=== PATIENT | female | born 1975 | race Caucasian/White ===

== ENCOUNTER → 2017-01-01 | Outpatient (CLI) | payer BC ==
[~2017-01-01] MED LIST: GABA-113 PO; GABA600T PO; HYDR-4330 PO; TNR25 PO
== END | disposition home or self-care (01) ==
LOC: C.PATHSPEC 15:08
PROVIDERS: ATTEND Obstetrics & Gynecology
DX: N93.9 Abnormal uterine and vaginal bleeding, unspecified (principal)

== ENCOUNTER → 2017-03-02 | Outpatient (CLI) | payer BC ==
--- NOTE | 2017-03-02 16:26 | MAMMOGRAPHY REPORT ---
BILATERAL DIGITAL SCREENING MAMMOGRAM TOMOSYNTHESIS WITH CAD: 03/02/2017 CLINICAL HISTORY: Routine screening. Patient has no complaints. TECHNIQUE: Breast tomosynthesis in addition to standard 2D mammography was performed. Current study was also evaluated with a Computer Aided Detection (CAD) system. COMPARISON: Comparison is made to exams dated: 02/28/2016 ultrasound biopsy, 02/28/2016 mammogram, 02/13 ultrasound, and 02/14/2016 mammogram - [facility]. BREAST COMPOSITION: The tissue of both breasts is almost entirely fatty. FINDINGS: The previously biopsied lymph node in the left axilla measuring 16 mm contains an internal metallic biopsy marker and is not significantly changed in size compared to the 02/14/2016 mammograms . A 5 mm circumscribed mass in the anterior retroareolar left breast is also unchanged. This was pr eviously documented to represent a cyst on ultrasound. No new suspicious mass, architectural distort ion or cluster of microcalcifications is seen. IMPRESSION: ACR BI-RADS CATEGORY 1: NEGATIVE There is no mammographic evidence of malignancy. A 1 year screening mammogram is recommended. The pa tient will receive written notification of the results. Approximately 10% of breast cancers are not detected with mammography. A negative mammographic report should not delay biopsy if a clinically suggestive mass is present. Emelia Pruett M.D. ay/:03/02/2017 15:20:40 Manager Respiratory Care: Nancy Foster, [facility] letter sent: Normal 1/2 BI-RADS Code: ACR BI-RADS Category 1: Negative
== END | disposition home or self-care (01) ==
LOC: C.MAMM 15:02
PROVIDERS: ATTEND Internal Medicine
DX: Z12.31 Encounter for screening mammogram for malignant neoplasm of breast (principal)

== ENCOUNTER 2017-11-23 05:45 | Observation (INO) | payer BC ==
[2017-11-02 10:07] VITALS: BMI 33.0
--- NOTE | 2017-11-02 10:35 | PAT Medication Instructions ---
Service Date Nov 02, 2017. Current Home Medication List Acetaminophen (Tylenol), Unknown Dose PO UD PRN for PRN Metoprolol Tartrate (Lopressor) (Lopressor), 0.5 TAB PO BID Medication Instructions For Your Scheduled Surgery - Take the following medications the morning of surgery with a sip of water: Acetaminophen (Tylenol), Unknown Dose PO UD PRN for PRN (if needed, can be taken up to four hours before surgery) Metoprolol Tartrate (Lopressor) (Lopressor), 0.5 TAB PO BID - Take the following medications as scheduled the night before surgery: Acetaminophen (Tylenol), Unknown Dose PO UD PRN for PRN (if needed) Metoprolol Tartrate (Lopressor) (Lopressor), 0.5 TAB PO BID If you have any questions please call us at [phone] or [phone] or [phone]
[~2017-11-23] VITALS: Ht 175.3 cm; Wt 101.6 kg
[2017-11-23] VITALS (9 sets, daily range): BP systolic 106–177; BP diastolic 68–94; PULSE 69–84; TEMP 36.3–36.9; O2SAT 95–99; Ht 175.3 cm; Wt 101.6 kg
[~2017-11-23 05:45] MED LIST changes: +ACET-1256 PO; -GABA-113 PO; -GABA600T PO; -HYDR-4330 PO; +METO25TA56 PO; -TNR25 PO
[2017-11-23] MEDS ORDERED: CLINDAMYCIN 600 MG/54 ML D5W 50 ML IV SCH (06:00)
[2017-11-23] MEDS ORDERED: LACTATED RINGER'S 1000ML 1,000 ML IV SCH ×3 (06:00→12:45)
[2017-11-23] MEDS ORDERED: GENTAMICIN INJ 150 MG in DEXTROSE 5% 100ML 100 ML IV SCH (06:00)
[2017-11-23] MEDS ORDERED: MIDAZOLAM HCL 1 MG/ML 2ML VIAL ONE (06:58)
[2017-11-23] MEDS ORDERED: LARYING-O-JET KIT (LTA) ONE (06:58)
[2017-11-23] MEDS ORDERED: FENTANYL CITRATE INJ 50 MCG/1 ML 2 ML VIAL ONE ×4 (06:58→10:46)
[2017-11-23] MEDS ORDERED: DEXAMETHASONE SOD INJ 4 MG/ML VIAL ONE (06:58)
[2017-11-23] MEDS ORDERED: ONDANSETRON INJ 2 MG/ML 2 ML VIAL ONE ×2 (06:58→08:54)
[2017-11-23] MEDS ORDERED: LIDOCAINE HCL 2% 2 ML VIAL (20MG/ML) ONE (06:58)
[2017-11-23] MEDS ORDERED: PROPOFOL IV EMULSION 10 MG/ML 20 ML VIAL IV ONE (06:58)
[2017-11-23] MEDS ORDERED: METHYLENE BLUE 0.5% 10 ML VIAL ONE (06:59)
[2017-11-23] MEDS ORDERED: HYDROmorphone INJ 2 MG/ML SYR/VIAL ONE (06:59)
[2017-11-23] MEDS ORDERED: BUPIVACAINE 0.5 % 5 MG/1 ML MPF 30ML VIAL ONE (06:59)
[2017-11-23] MEDS ORDERED: ACETAMINOPHEN 1000 MG/100 ML IV IV ONE (07:04)
--- NOTE | 2017-11-23 07:11 | History & Physical Bridge Note ---
H&P Re-Evaluation Bridge Note: I have examined the patient, reviewed the History & Physical and in the interval since the performance of the History & Physical I have noted the following changes of clinical significance: No changes noted. Patient does want to use norco for her postop pain.
[2017-11-23] MEDS ORDERED: HYDR-4452 PO (07:13)
[2017-11-23] MEDS ORDERED: LABETALOL HCL IV 5 MG/ML 20ML IV PRN (08:00)
[2017-11-23] MEDS ORDERED: HYDROmorphone INJ 1 MG/ML SYR IV PRN (08:00)
[2017-11-23] MEDS ORDERED: ATROPINE SULFATE 0.1 MG/ML 5ML SYR IV PRN (08:00)
[2017-11-23] MEDS ORDERED: ONDANSETRON INJ 2 MG/ML 2 ML VIAL IV PRN ×2 (08:00→10:30)
[2017-11-23] MEDS ORDERED: FENTANYL CITRATE INJ 50 MCG/1 ML 2 ML VIAL IV PRN (08:00)
[2017-11-23] MEDS ORDERED: EpHEDrine SULFATE INJ 50 MG/ML AMP IV PRN (08:00)
[2017-11-23] MEDS ORDERED: MEPERIDINE HCL 25 MG/ML CARP IV PRN (08:00)
[2017-11-23] MEDS ORDERED: NEOSTIGMINE METHYLSULFATE 5 MG/5 ML SYR ONE (08:55)
[2017-11-23] MEDS ORDERED: GLYCOPYRROLATE INJ 0.2 MG/ML VIAL ONE (08:55)
--- NOTE | 2017-11-23 10:25 | [facility] Post Operative Brief Note ---
Immediate Operative Summary Operative Date Nov 23, 2017. Pre-Operative Diagnosis 1. Abnormal uterine bleeding 2. Menorrhagia 3. Leiomyoma Post-Operative Diagnosis 1. Abnormal uterine bleeding 2. Menorrhagia 3. Leiomyoma Procedure(s) Performed Total Laparoscopic Hysterectomy with Bilateral Salpingectomies, Cystoscopy Marci Robotic assistance Surgeon Dr. Lucina Segovia Payable Manager Surgeon(s) None Estimated Blood Loss 10 mL Findings See Below (uterus enlarged with multiple fibroids, 12wk size. nl ovaries bilat, nl fallopian tubes. cysto finding, nl bladder filling, nl ureteral jets) as noted Fluids (cc crystalloids) 1100 Specimens Permanent specimens A: Surgically resected uterus and cervix; bilateral fallopian tubes Drains olson Anesthesia Type General Complication(s) none Disposition Disposition: Recovery Room / PACU
[2017-11-23] MEDS ORDERED: SIMETHICONE 80 MG CHEW PO PRN (10:30)
[2017-11-23] MEDS ORDERED: ACETAMINOPHEN 325 MG TAB PO PRN (10:30)
--- NOTE | 2017-11-23 10:31 | Discharge Instructions ---
Discharge Instructions Date of Service Nov 23, 2017. Admission Reason for Admission: Abnormal Uterine Bleeding, Leiomyoma, Cervical Navi Discharge Discharge Diagnosis / Problem: after surgery Discharge Goals Goal(s): Routine recovery after surgery Activity Recommendations Activity Limitations: as noted below . Instructions / Follow-Up Instructions / Follow-Up POST OPERATIVE: BOWEL FUNCTION/MEDICATIONS: 1. Constipation pain and discomfort are the most common complaints 5-7 days after surgery. Points 2-6 address the things that can help. 2. Chewing gum can help stimulate the gut and help improve digestion and motility. 3. Milk of Magnesia 1-2 times per day until return of bowel function. 4. Colace is a stool softener that helps. Taking this 2-3 times per day until bowel function returns to normal is highly recommended. 5. Dulcolax is a laxative that may be used if several days have passed without a bowel movement. Alternatively Miralax may be used daily instead. 6. Drink plenty of fluids as this will also reduce constipation. 7. Narcotic pain medications will be prescribed by your physician. They are safe to use and we encourage you to use them. If you are not allergic, ibuprofen will also be prescribed. Many patients will be able to transition off of the narcotic medications to ibuprofen by postoperative day 3. ACTIVITY RECOMMENDATIONS: 1. Get plenty of rest and listen to your body. If you are tired, take a nap. 2. You may shower, but do not take a tub bath until you see your doctor at the 2 week post operative visit. 3. Absolutely NO intercourse and nothing in the vagina until you are examined by your doctor at the 8 week visit. At that visit it will be determined when such activities can be resumed. This can range from 6-12 weeks after your surgery depending on healing time. 4. The main physical activity in the first week should be walking. By the second week you can slowly increase activity. There are no limits on walking up and down stairs. 5. Do not lift more than 5-10 lbs for 4 weeks. Remember the "one-handed rule", i.e. if you can lift something with only one hand it's likely okay. 6. Minimize associate automation engineer like vacuuming and exercising for 4 weeks. "Overdoing it" can lead to incisions not healing, pain and vaginal bleeding , so again, listen to your body. 7. Driving can be resumed when you feel able. Do not drive within 24 hours of taking a narcotic medication. EXPECTATIONS: 1. Vaginal spotting, bleeding and discharge are common after surgery. There may even be an odor to the discharge which is often related to sutures used in the vagina. If you experience heavy vaginal bleeding, call the office number day or night [phone]. 2. Bladder discomfort is common after surgery from the catheter. This usually resolves in 1-2 weeks. 3. By the end of the 3rd or 4th week you should be feeling much better. It may take up to 6 weeks for your energy levels to return to normal. 4. Narcotic medications have side effects such as: dizziness, headache, nausea and/or vomiting. If you suspect your pain medication is causing problems, call our office and we may be able to prescribe an alternate medication. 5. The skin incisions are often covered with a liquid bandage. This will gradually peel off over time. CALL THE OFFICE IF YOU HAVE ANY OF THE FOLLOWIN. Temperature of 101 degrees or higher. 2. Severe abdominal or pelvic pain not relieved by pain medication. 3. Persistent nausea or vomiting. 4. Increased pain with urination or difficulty urinating. 5. Bright red bleeding that soaks more than 1 pad per hour. CONTACT PHONE NUMBERS: Main Office: [phone] Surgical Nurse: [phone] extension [phone] FOLLOW-UP: Post-Operative Appointments: * Individual instructions will have been given about the timing of your first examination, but this is usually at the end of the second week home. * You will need to call the office at soon after discharge to make the appointment for your post-op check-up if it has not already been scheduled. * Additional information regarding activity, sexual intercourse and when to return to work will be given at this appointment. WE WISH YOU A SPEEDY RECOVERY! Current Hospital Diet Patient's current hospital diet: Discharge Diet Recommended Diet: Regular Diet Procedures Procedures Performed: Total Laparoscopic Hysterectomy with Bilateral Salpingectomies, Cystoscopy DaVinci Robotic assistance Pending Studies Studies pending at discharge: yes List of pending studies: pathology Medical Emergencies . Who to Call and When: Medical Emergencies: If at any time you feel your situation is an emergency, please call 911 immediately. . Non-Emergent Contact Non-Emergency issues call your: Ball Holder . . "Provider Documentation" section prepared by Lucina Segovia. . [place] Drug Monitoring Program Search Results: patient reviewed within database, no issues identified
[2017-11-23] MEDS ORDERED: ROCURONIUM BROMIDE 10 MG/ML 5 ML VIAL IV ONE (10:39)
--- NOTE | 2017-11-23 11:57 | OPERATIVE REPORT ---
DATE OF OPERATION: 11/23/2017 PREOPERATIVE DIAGNOSES: 1. Abnormal uterine bleeding. 2. Menorrhagia. 3. Leiomyoma. POSTOPERATIVE DIAGNOSES: Same. PROCEDURES: 1. Total laparoscopic hysterectomy. 2. Bilateral salpingectomies. 3. Cystoscopy. 4. Robotic assistance. SURGEON: Dr. Lucina Segovia. ENTERPRISE INTEGRATION DEVELOPER: None. IV FLUIDS: 1100 mL. ESTIMATED BLOOD LOSS: 10 mL. URINE OUTPUT: 250 mL. ANESTHESIA: General. FINDINGS: Markedly enlarged uterus with multiple fibroids, at least a 12-week size, filling the pelvis. Bilateral normal ovaries and fallopian tubes. Cystoscopy findings with normal bladder filling and normal ureteral jets. INDICATIONS: A 42-year-old 1, para 1 with a history of abnormal uterine bleeding, menorrhagia and enlarged fibroid uterus, who desired definitive surgical management. DESCRIPTION OF PROCEDURE: The patient was taken to the operating room and identified. After adequate general anesthesia was obtained, she was placed in dorsal lithotomy position and prepped and draped in the usual sterile fashion. A Santos catheter was placed under sterile conditions. Attention was turned to the patient's vagina, where a weighted speculum and anterior retractor were placed to visualize the cervix, which was grasped in its anterior lip with an Allis clamp. A single interrupted suture of 0 Vicryl was placed at the 3 o'clock position and tied down. The cervix was sequentially dilated using Laly dilators; however, it was somewhat inadequate. A small amount of tunneling was potentially noted and therefore, further dilation was stopped. Attention was then turned to the patient's abdomen, where a supraumbilical skin incision was made with a scalpel. The Veress needle was placed intraperitoneally with an opening pressure of 7 mmHg. A CO2 pneumoperitoneum was created. The 12-mm optical trocar was then placed under direct visualization into the peritoneal cavity. The patient was placed in steep Trendelenburg. The uterus was visualized and was seen as noted above. Using the camera as visualization, attention was returned to the vagina, where the cervix was further attempts to be dilated and the VCare uterine manipulator device was placed through the cervical os into the uterine cavity, although it only sounded to 6 cm. The balloon was inflated and the suture material was tied to the cup and the cup was stabilized. The uterine manipulation was poor. The centrifugal casting machine operator returned to the abdomen, where 3 da Archie trocar sites, 2 right at the midline and 1 left of midline were created by first creating skin incisions and then placing under direct visualization da Archie trocars. The additional left upper quadrant patient assist port was placed that was approximately 10 mm. The da Archie robot was then brought to the patient's bedside. The appropriate instrument arms were connected to the appropriate trocars. The camera was introduced. A ProGrasp was placed into an instrument arm #3 under direct visualization followed by monopolar jayant through an instrument arm #1 and a fenestrated bipolar through an instrument arm #2. The instruments were brought into the field under direct visualization. The centrifugal casting machine operator then went to the console. Using some manipulation from below as well as the ProGrasp, the right uterine, ovarian, fallopian tube and round ligament complex was identified. The ureter was seen coursing well below the planned operative sites on this side. The above stated complex was then coagulated and transected sequentially using the fenestrated bipolar followed by monopolar jayant. The bladder flap was begun from the left side towards the midline. The bladder was pushed well away from the planned operative site. There were some filmy and dense adhesions in this area. The uterine artery pedicle on this side was skeletonized and then coagulated, but not cut. Attention was then returned to the left uterine-ovarian, round ligament, and fallopian tube complex. The ureter was suspected to be coursing low in the pelvis on this side but visualization was more difficult due to the colon and pelvic fat. This manipulation on this side was worse. The ProGrasp instrument was used to help visualize the uterine ovarian ligament attachment. The ovary was fairly adhesed to the uterus and sequentially was coagulated and transected away from the uterine wall. The round ligament complex was elevated and coagulated and transected. The posterior leaf of the broad ligament was then opened up into and dissected back towards the remaining uterine ovarian ligament complex. This was all coagulated and transected and then bluntly . The anterior leaf of the broad ligament was opened up into and the bladder flap was begun from the left side to meet across the midline on the right. She has a prior section. This dissection was done cautiously and the planned area of the colpotomy site was completely cleared away using the monopolar jaaynt and fenestrated bipolar in succession. The uterine artery pedicle on this side was more difficult to skeletonize. Once it was skeletonized, it was coagulated in multiple steps and then transected using the monopolar jayant. The attention was returned to the right uterine artery pedicle, which was then recoagulated and transected. At this point, the uterus was attempted to be lifted anteriorly and the ProGrasp needed to be used to stabilize that in order to observe the posterior colpotomy site. With further pressure on the VCare cup, the balloon perforated at the posterior cervix, probably at the level of the internal os, the vcare cup was never at the fundus. The vcare cup was then thought to be approximately a couple of centimeters caudad to this perforation and a colpotomy was begun along this area between the uterosacral ligaments. Once the cup was identified, the cervix was carved away from the upper vagina circumferentially using the monopolar jayant. Once the specimen was completely freed, attention was turned to the vagina, where the specimen was removed. This took place using a bivalve and uterine coring resection technique. The uterus was completely removed as well as the cervix. A sponge was placed in the vagina to allow for maintenance of the pneumoperitoneum. Attention was returned to the console and the bilateral fallopian tubes were resected and brought out through the patient assist port using a grasper and sent as specimen. The #1 instrument arm was replaced with the large needle full service vending driver. The 2-0 V-Loc 90 suture was brought into the abdomen. The cuff was then closed in the usual fashion using the suture material and back stitches were placed. The suture material was then cut and the needle was removed. The sponge in the vagina had been removed and the pneumoperitoneum was maintained. IV methylene blue had been administered. There were no active bleeding sites. At this point, a cystoscopy took place with the findings as noted above. The trocars had all been disconnected from the robotic instrument arms and the robot was moved away from the patient's bedside. The CO2 gas was allowed to escape from the patient's abdomen. A new Santos catheter had already been placed. The patient was placed in a flat positioning. The larger trocar sites had their subcutaneous fat reapproximated using 0 Vicryl. All incision sites were then closed in a subcuticular fashion using 4-0 Vicryl. Approximately 12 mL of Marcaine were injected in the incision sites and they were then dressed with Dermabond. The patient was returned to the supine position. She was awoken from anesthesia and transferred to recovery room in stable condition. All sponge, lap and needle counts were correct x2. It is significant to mention that the vagina was inspected and there were no issues or lacerations noted. The patient was awoke from the anesthesia and transferred to recovery room in stable condition. I attest to the content of the Intraoperative Record and any orders documented therein. Any exceptions are noted below. EMILY
--- NOTE | 2017-11-23 12:16 | Anesthesiology Progress Note ---
Anesthesia Post Op Note Date & Time Nov 23, 2017 at 12:15 Vital Signs Pain Intensity: 4.0 Vital Signs Past 12 Hours Date Time Temp Pulse Resp B/P (MAP) Pulse Ox O2 Delivery O2 Flow Rate FiO2 11/23/17 12:04 36.6 69 14 106/69 (81) 97 Room Air 11/23/17 11:40 Room Air 11/23/17 11:40 Room Air 11/23/17 11:30 70 16 113/73 98 Nasal Cannula 3 11/23/17 11:15 71 16 116/68 98 Nasal Cannula 3 11/23/17 11:00 36.3 67 16 104/74 98 Nasal Cannula 3 11/23/17 10:50 67 16 106/64 96 Oxymask 5 11/23/17 10:40 78 16 122/69 100 Oxymask 10 11/23/17 10:34 36.2 96 12 113/72 100 Oxymask 10 11/23/17 06:31 36.9 83 18 177/94 (121) 99 Room Air Notes Mental Status: alert / awake / arousable, participated in evaluation Pt Amnestic to Procedure: Yes Nausea / Vomiting: adequately controlled Pain: adequately controlled Airway Patency, RR, SpO2: stable & adequate BP & HR: stable & adequate Hydration State: stable & adequate Anesthetic Complications: no major complications apparent
[2017-11-23] MEDS ORDERED: HYDR-5688 PO (12:20)
[2017-11-23] MEDS: HYDROCODONE/ACETAMIN 5/325MG TAB PO PRN ×2 (13:32→14:53)
[2017-11-23] MEDS ORDERED: IV FLUIDS COMPLETED PRN (16:30)
--- NOTE | 2017-11-26 20:30 | Discharge Summary ---
Discharge Summary Date of Service Nov 23, 2017. Date of discharge 11/23/17. Discharge Summary Admission diagnoses: abnormal uterine bleeding, menorrhagia, leiomyoma Discharge diagnoses: same Procedures: total laparoscopic hysterectomy, cystoscopy, bilateral salpingectomies, robotic assistance. Brief history and hospital course: Patient with known heavy menstrual bleeding with enlarged uterus with fibroids and desires definitive surgical management. She underwent above stated procedures without incident. On same day as surgery was tolerating regular diet, voiding, ambulating and tolerating her pain on oral medications. She was given instructions and prescriptions for pain medications and was sent home. Plan for followup in 2weeks.
== END 2017-11-23 18:10 | disposition home or self-care (01) ==
LOC: C.ACU 05:45 → C.OBG 10:28 → INTOOBSV 10:28 → ENRESERV 11:27
PROVIDERS: ADMIT Obstetrics & Gynecology; ATTEND Obstetrics & Gynecology
DX: N93.9 Abnormal uterine and vaginal bleeding, unspecified (principal); N92.0 Excessive and frequent menstruation with regular cycle; D25.9 Leiomyoma of uterus, unspecified; I10 Essential (primary) hypertension; M54.16 Radiculopathy, lumbar region; M47.816 Spondylosis without myelopathy or radiculopathy, lumbar region; E55.9 Vitamin D deficiency, unspecified; Z88.6 Allergy status to analgesic agent; Z88.0 Allergy status to penicillin; Z88.2 Allergy status to sulfonamides; Z81.8 Family history of other mental and behavioral disorders; Z83.3 Family history of diabetes mellitus; Z82.49 Family history of ischemic heart disease and other diseases of the circulatory system
CPT/HCPCS: 58573; S2900

== ENCOUNTER 2017-11-30 12:02 | Emergency (ER) | payer BC ==
[~2017-11-30] VITALS: Ht 172.7 cm; Wt 101.0 kg
[~2017-11-30 12:02] MED LIST changes: +HYDR-5688 PO
[2017-11-30 12:15] VITALS: TEMP 37.1; Ht 172.7 cm; Wt 101.0 kg
[2017-11-30] MEDS ORDERED: ACETAMINOPHEN 500 MG TAB PO STA (12:47)
[2017-11-30] MEDS ORDERED: SODIUM CHLORIDE 0.9% 1000ML 1,000 ML IV STA (12:47)
--- NOTE | 2017-11-30 12:56 | EMERGENCY ROOM VISIT NOTE ---
History Report prepared by Graham: Pascual Leo Under the Supervision of: Dr. Vance Faria M.D. First contact with patient: 12:44 Chief Complaint: FLANK PAIN Stated Complaint: RT SIDED PAIN ON INSPIRATION-TOTAL HYSTERECTOMY History of Present Illness The patient is a 42 year old female who presents to the Emergency Room with complaints of pain in her right flank that has been present since a laparoscopic total hysterectomy that was performed on the 12th, 7 days ago. The patient states that following the procedure she had pain in her right chest, right shoulder, and right side that she just attributed to surgical air. These pains have dissipated at this time. The right flank pain has persisted and is now worsened by deep inhalation. The patient described the pain as the cramping sensation associated with running. The pain will "double her over" intermittently. She denies any burning with urination, cough, congestion, or shortness of breath. Source of History: patient Onset: 7 days ago Position: back (right flank) Symptom Intensity: will "double her over" in pain Quality: cramping Modifying Factors (Worsening): other (Deep inhalaltion) Associated Symptoms: No cough, No SOB, No urinary symptoms Review of Systems See HPI for pertinent positives and negatives. A total of ten systems were reviewed and were otherwise negative. Past Medical & Surgical Medical Problems: (1) Abnormal uterine bleeding (AUB) (2) Leiomyoma (3) Menorrhagia Family History Cancer Diabetes mellitus Heart disease Hypertension Social History Smoking Status: Never Smoker Alcohol Use: none Drug Use: none Marital Status: Occupation Status: employed Current/Historical Medications Scheduled Metoprolol Tartrate (Lopressor) (Lopressor), 12.5 MG PO BID Allergies Coded Allergies: Sulfa Antibiotics (Verified Allergy, Severe, TONGUE SWELLING, CAN'T BREATHE, 11/30/17) Penicillins (Verified Allergy, Mild, RASH, 11/30/17) Aspirin (Verified Allergy, Unknown, UNKNOWN, 11/30/17) NSAIDs (Verified Allergy, Unknown, TOLD BY [employer] NOT TO TAKE NSAIDS, ) WAS TOLD BY [employer] IN PAST NOT TO TAKE NSAIDS Erythromycin (Verified Adverse Reaction, Mild, N/V, 11/30/17) Physical Exam Vital Signs Date Time Temp Pulse Resp B/P (MAP) Pulse Ox O2 Delivery O2 Flow Rate FiO2 11/30/17 15:31 97 20 127/89 98 Room Air 11/30/17 13:45 90 18 147/91 100 Room Air 11/30/17 13:20 109 11/30/17 13:20 99 Room Air 11/30/17 12:15 37.1 101 20 169/94 99 Room Air Physical Exam GENERAL: Awake, alert, well-appearing, in no distress HENT: Normocephalic, atraumatic. Mucous membranes are dry. EYES: Normal conjunctiva. Sclera non-icteric. NECK: Supple. No nuchal rigidity. FROM. No JVD. RESPIRATORY: Clear to auscultation. CARDIAC: Regular rate, normal rhythm. Extremities warm and well perfused. Pulses equal. ABDOMEN: Soft, non-distended. No tenderness to palpation. No rebound or guarding. No masses. RECTAL: Deferred. MUSCULOSKELETAL: Chest examination reveals no tenderness. The back is symmetrical on inspection without obvious abnormality. There is no CVA tenderness to palpation. No joint edema. There is mild right flank tenderness. No peritoneal signs. LOWER EXTREMITIES: Calves are equal size bilaterally and non-tender. No edema. No discoloration. NEURO: Normal sensorium. No sensory or motor deficits noted. SKIN: No rash or jaundice noted. Medical Decision & Procedures ER Provider Diagnostic Interpretation: Radiology results as stated below per my review and radiologist interpretation: ABDOMEN AND PELVIS CT WITH IV CONTRAST HISTORY: Acute right-sided flank pain with history of recent hysterectomy Right flank pain TECHNIQUE: Multiaxial CT images of the abdomen and pelvis were performed following the use of intravenous contrast. A dose lowering technique was utilized adhering to the principles of ALARA. COMPARISON STUDY: CTA chest of same day. FINDINGS: Linear subsegmental bibasilar consolidative opacities and groundglass densities of the lung bases suggest areas of atelectasis. Imaged inferior cardiac chambers are unremarkable. Indeterminate 5 mm low attenuating lesion of the lateral left hepatic lobe is too small to characterize however suggests benign etiology such as a hepatic cyst. Similar appearing 3 mm lesion is noted involving the hepatic dome. No intrahepatic biliary ductal dilation. Spleen is mildly enlarged, 13.1 cm. The pancreas, gallbladder and adrenal glands are within normal limits. Kidneys, ureters and urinary bladder are unremarkable. The aorta is normal in course and caliber. No bulky adenopathy. There is no bowel obstruction or focal bowel wall thickening identified. Mild colonic diverticulosis without CT evidence of acute diverticulitis. Normal appendix. There is moderate stranding about the central lower pelvis about the vaginal cuff with surgically absent uterus. Scattered foci of pneumoperitoneum and extraperitoneal air are seen throughout the abdomen and pelvis with additional foci of deep tissue air of the abdominal wall. Focal area of increased attenuation measuring 2.6 x 1.4 cm is noted adjacent to the left anterior upper pelvis suggesting small hematoma formation, image 371 of series 6. Hyperattenuating material within the dependent pelvis is also compatible with hemorrhage. There is a 1.8 x 1.4 cm cystic lesion of the left ovary suggesting dominant follicle. Right adnexum is unremarkable. No loculated drainable fluid collections or abscess. No retained foreign body. Mild stranding with subcutaneous and deep tissue air is noted about the periumbilical tissues and left lower pelvis, likely postsurgical. The bones appear intact. IMPRESSION: 1. Postoperative changes from recent hysterectomy. Mild layering hemorrhage is seen within the dependent pelvis with a small 2.6 cm hematoma of the left upper pelvis. Scattered areas of pneumoperitoneum, extraperitoneal air and deep tissue air about the abdominal wall are also likely expected postsurgical changes. No drainable fluid collections identified. 2. No bowel obstruction or focal bowel wall thickening. 3. Mild colonic diverticulosis without diverticulitis. 4. Normal appendix. Electronically signed by: Kameron Pineda M.D. 11/30/2017 2:46 PM Dictated Date/Time: 11/30/2017 2:32 PM (CHEST FOR PE) ANGIO WITH CT DOSE: 1545.99 mGy.cm HISTORY: Chest pain dyspnea TECHNIQUE: Multiaxial CT images of the chest were performed following the intravenous administration of contrast to evaluate the pulmonary arteries. Maximal intensity projection images were also obtained. A dose lowering technique was utilized adhering to the principles of ALARA. COMPARISON STUDY: None. FINDINGS: There is a normal caliber thoracic aorta with no evidence for dissection. There is no evidence for pulmonary embolus. No pleural effusions. No pneumothorax. The liver and spleen are unremarkable. No mediastinal or hilar lymphadenopathy. The central airways are patent. Lungs demonstrate bibasilar subsegmental atelectatic change. Mid and upper lungs are considered clear. Moderate degenerative disc change at the entire thoracic region. IMPRESSION: No evidence for pulmonary embolus. Bibasilar subsegmental atelectasis. Lungs otherwise appear clear. Moderate degenerative changes thoracic spine. The above report was generated using voice recognition software. It may contain grammatical, syntax or spelling errors. Electronically signed by: Josh Saba M.D. 11/30/2017 2:36 PM Dictated Date/Time: 11/30/2017 2:32 PM CHEST ONE VIEW PORTABLE CLINICAL HISTORY: CHEST PAIN dyspnea COMPARISON STUDY: 08/19/2012 FINDINGS: The bones soft tissues and hemidiaphragms are normal. The cardiomediastinal silhouette is normal. The lungs are clear. The pulmonary vasculature is normal. IMPRESSION: Negative chest. The above report was generated using voice recognition software. It may contain grammatical, syntax or spelling errors. Electronically signed by: Josh Saba M.D. 11/30/2017 1:24 PM Laboratory Results 11/30/17 12:35 Red Blood Count 4.80, Mean Corpuscular Volume 86.5, Mean Corpuscular Hemoglobin 30.0, Mean Corpuscular Hemoglobin Concent 34.7, Mean Platelet Volume 10.2, Neutrophils (%) (Auto) 69.5, Lymphocytes (%) (Auto) 21.6, Monocytes (%) (Auto) 6.1, Eosinophils (%) (Auto) 2.2, Basophils (%) (Auto) 0.3, Neutrophils # (Auto) 7.92, Lymphocytes # (Auto) 2.46, Monocytes # (Auto) 0.70, Eosinophils # (Auto) 0.25, Basophils # (Auto) 0.03 11/30/17 12:35 11/30/17 13:57 Test 11/30/17 12:35 11/30/17 13:15 11/30/17 13:57 White Blood Count 11.39 K/uL (4.8-10.8) Red Blood Count 4.80 M/uL (4.2-5.4) Hemoglobin 14.4 g/dL (12.0-16.0) Hematocrit 41.5 % (37-47) Mean Corpuscular Volume 86.5 fL (80-100) Mean Corpuscular Hemoglobin 30.0 pg (25-34) Mean Corpuscular Hemoglobin Concent 34.7 g/dl (32-36) Platelet Count 339 K/uL (130-400) Mean Platelet Volume 10.2 fL (7.4-10.4) Neutrophils (%) (Auto) 69.5 % Lymphocytes (%) (Auto) 21.6 % Monocytes (%) (Auto) 6.1 % Eosinophils (%) (Auto) 2.2 % Basophils (%) (Auto) 0.3 % Neutrophils # (Auto) 7.92 K/uL (1.4-6.5) Lymphocytes # (Auto) 2.46 K/uL (1.2-3.4) Monocytes # (Auto) 0.70 K/uL (0.11-0.59) Eosinophils # (Auto) 0.25 K/uL (0-0.5) Basophils # (Auto) 0.03 K/uL (0-0.2) RDW Standard Deviation 41.4 fL (36.4-46.3) RDW Coefficient of Variation 13.0 % (11.5-14.5) Immature Granulocyte % (Auto) 0.3 % Immature Granulocyte # (Auto) 0.03 K/uL (0.00-0.02) Anion Gap 7.0 mmol/L (3-11) Est Creatinine Clear Calc Drug Dose 112.4 ml/min Estimated GFR () 103.8 Estimated GFR (Non- 89.6 BUN/Creatinine Ratio 16.2 (10-20) Calcium Level 9.4 mg/dl (8.5-10.1) Total Bilirubin 0.5 mg/dl (0.2-1) Alanine Aminotransferase (ALT/SGPT) 23 U/L (12-78) Alkaline Phosphatase 96 U/L (45-117) Troponin I < 0.015 ng/ml (0-0.045) Total Protein 8.6 gm/dl (6.4-8.2) Albumin 3.9 gm/dl (3.4-5.0) Lipase 204 U/L (73-393) Bedside D-Dimer > 450 ng/mlFEU (0-450) Urine Color YELLOW Urine Appearance CLOUDY (CLEAR) Urine pH 5.0 (4.5-7.5) Urine Specific [place] 1.027 (1.000-1.030) Urine Protein NEG (NEG) Urine Glucose (UA) NEG (NEG) Urine Ketones TRACE (NEG) Urine Occult Blood 1+ (NEG) Urine Nitrite NEG (NEG) Urine Bilirubin NEG (NEG) Urine Urobilinogen NEG (NEG) Urine Leukocyte Esterase TRACE (NEG) Urine WBC (Auto) 1-5 /hpf (0-5) Urine RBC (Auto) 0-4 /hpf (0-4) Urine Hyaline Casts (Auto) 1-5 /lpf (0-5) Urine Epithelial Cells (Auto) >30 /lpf (0-5) Urine Bacteria (Auto) 1+ (NEG) Urine Crystals CALCIUM OXALATE (NONE Urine Yeast (Auto) (NONE PRSENT) Direct Bilirubin < 0.1 mg/dl (0-0.2) Aspartate Amino Transf (AST/SGOT) 8 U/L (15-37) Date/Time Source Procedure Growth Status 11/30/17 13:15 Urine , Clean Catch Urine Culture - Final THREE TYPES OF ORGANSIMS PRESENT, ALL... Complete Laboratory results reviewed by me Medications Administered Medications (Trade) Dose Ordered Sig/Reshma Route Start Time Stop Time Status Last Admin Dose Admin Sodium Chloride 1,000 ml @ 999 mls/hr Q1H1M STAT IV 11/30/17 12:47 11/30/17 13:47 DC 11/30/17 13:27 999 MLS/HR Acetaminophen (Tylenol Tab) 1,000 mg NOW STAT PO 11/30/17 12:47 11/30/17 12:54 DC 11/30/17 13:28 1,000 MG ECG Per My Interpretation Indication: chest pain Rate (beats per minute): 101 Rhythm: sinus tachycardia Findings: other (Normal [place], No YU/STD) ED Course 1246: The patient was evaluated in room A3. A complete history and physical exam was performed. 1247: Ordered Tylenol 1000 mg PO, Sodium Chloride 1000 mL @ 999 mL/hr IV. 1450: I reevaluated the patient. Discussed results and discharge instructions: she verbalized understanding and agreement. The patient is ready for discharge. Medical Decision I reviewed the patient's past medical history, medications, and the nursing notes as described above. Differential diagnosis: Etiologies such as renal colic, appendicitis, diverticulitis, mesenteric ischemia, aortic pathology, infections, inflammatory bowel disease, PUD, biliary pathology, UTI, as well as others were entertained. CC patient is a 42-year-old woman who presents emergency department with right groin pain after having a laparoscopic hysterectomy 7 days prior to arrival per hpi. On arrival the patient is no acute distress, afebrile stable vital signs. On exam, she has mild tenderness to the right lower chest wall area and complains of pleuritic symptoms where pain is worse with deep breath. Of note, the patient reports her type of pain that resolved slowly over time from her procedure which was believed to be related to effusion of gas from her procedure. EKG is unremarkable. D-dimer was elevated and so CT PE was performed as well as CT the abdomen and pelvis. CT negative for pulmonary embolism, pneumonia, or concerning acute process otherwise. WBC 11 is nonspecific and labs otherwise unremarkable. Patient feels improved with IV fluid hydration although still has some mild pain which she states is manageable. Findings and plan for follow-up reviewed with patient. Patient agreeable and d/c'd per discharge instructions. Impression Primary Impression: Right flank pain Scribe Attestation The scribe's documentation has been prepared under my direction and personally reviewed by me in its entirety. I confirm that the note above accurately reflects all work, treatment, procedures, and medical decision making performed by me. Departure Information Dispostion Home / Self-Care Referrals Mak Faustin M.D. (PCP) Patient Instructions ED Flank Pain Uncertain Cause, My [facility] Additional Instructions Please follow up with your primary care physician and your surgeon as scheduled for re-evaluation. The cause of your symptoms is unclear at this time but may be related to residual gas from her recent laparoscopic surgery. Otherwise, your exam, EKG, chest xray, lab results, and CT scan of your chest and abdomen/pelvis did not show signs of an emergent condition at this time. Acetaminophen for pain and fevers as needed. Drink plenty of fluids to ensure hydration. Return to the emergency department for worsening symptoms as described in the accompanying instructions.
[2017-11-30 13:05] LABS: BASO % 0.3 %; BASO ABS # 0.03 K/uL (0-0.2); EOS % 2.2 %; EOS ABS # 0.25 K/uL (0-0.5); HEMATOCRIT 41.5 % (37-47); HEMOGLOBIN 14.4 g/dL (12.0-16.0); IG# 0.03 K/uL (0.00-0.02); LYMPH % 21.6 %; LYMPH ABS # 2.46 K/uL (1.2-3.4); MEAN CELL VOLUME 86.5 fL (80-100); MEAN CORPUSCULAR HGB CONC 34.7 g/dl (32-36); MEAN PLATELET VOLUME 10.2 fL (7.4-10.4); MONO % 6.1 %; NEUT % 69.5 %; NEUT ABS # 7.92 K/uL (1.4-6.5); PLATELET COUNT 339 K/uL (130-400); RED CELL DISTRIBUTION WIDTH SD 41.4 fL (36.4-46.3); WHITE BLOOD COUNT 11.39 K/uL (4.8-10.8)
[2017-11-30 13:20] VITALS: O2SAT 99
--- NOTE | 2017-11-30 13:25 | DIAGNOSTIC IMAGING REPORT ---
CHEST ONE VIEW PORTABLE CLINICAL HISTORY: CHEST PAIN dyspnea COMPARISON STUDY: 08/19/2012 FINDINGS: The bones soft tissues and hemidiaphragms are normal. The cardiomediastinal silhouette is normal. The lungs are clear. The pulmonary vasculature is normal. IMPRESSION: Negative chest. The above report was generated using voice recognition software. It may contain grammatical, syntax or spelling errors. Electronically signed by: Josh Saba M.D. 11/30/2017 1:24 PM Dictated Date/Time: 11/30/2017 1:24 PM
[2017-11-30 13:35] LABS: ALBUMIN 3.9 gm/dl (3.4-5.0); ALKALINE PHOSPHATASE 96 U/L (45-117); ALT/SGPT 23 U/L (12-78); BLOOD UREA NITROGEN 13 mg/dl (7-18); CALCIUM 9.4 mg/dl (8.5-10.1); CARBON DIOXIDE 26 mmol/L (21-32); CREATININE 0.81 mg/dl (0.60-1.20); GLUCOSE 90 mg/dl (70-99); LIPASE 204 U/L (73-393); SODIUM 137 mmol/L (136-145); TOTAL PROTEIN 8.6 gm/dl (6.4-8.2)
[2017-11-30] MEDS ORDERED: OPTIRAY 320 IV PRN (14:00)
[2017-11-30 14:26] LABS: POTASSIUM 4.4 mmol/L (3.5-5.1)
[2017-11-30 14:31] LABS: AST/SGOT 8 U/L (15-37)
--- NOTE | 2017-11-30 14:38 | DIAGNOSTIC IMAGING REPORT ---
(CHEST FOR PE) ANGIO WITH CT DOSE: 1545.99 mGy.cm HISTORY: Chest pain dyspnea TECHNIQUE: Multiaxial CT images of the chest were performed following the intravenous administration of contrast to evaluate the pulmonary arteries. Maximal intensity projection images were also obtained. A dose lowering technique was utilized adhering to the principles of ALARA. COMPARISON STUDY: None. FINDINGS: There is a normal caliber thoracic aorta with no evidence for dissection. There is no evidence for pulmonary embolus. No pleural effusions. No pneumothorax. The liver and spleen are unremarkable. No mediastinal or hilar lymphadenopathy. The central airways are patent. Lungs demonstrate bibasilar subsegmental atelectatic change. Mid and upper lungs are considered clear. Moderate degenerative disc change at the entire thoracic region. IMPRESSION: No evidence for pulmonary embolus. Bibasilar subsegmental atelectasis. Lungs otherwise appear clear. Moderate degenerative changes thoracic spine. The above report was generated using voice recognition software. It may contain grammatical, syntax or spelling errors. Electronically signed by: Josh Saba M.D. 11/30/2017 2:36 PM Dictated Date/Time: 11/30/2017 2:32 PM
--- NOTE | 2017-11-30 14:47 | DIAGNOSTIC IMAGING REPORT ---
ABDOMEN AND PELVIS CT WITH IV CONTRAST HISTORY: Acute right-sided flank pain with history of recent hysterectomy Right flank pain TECHNIQUE: Multiaxial CT images of the abdomen and pelvis were performed following the use of intravenous contrast. A dose lowering technique was utilized adhering to the principles of ALARA. COMPARISON STUDY: CTA chest of same day. FINDINGS: Linear subsegmental bibasilar consolidative opacities and groundglass densities of the lung bases suggest areas of atelectasis. Imaged inferior cardiac chambers are unremarkable. Indeterminate 5 mm low attenuating lesion of the lateral left hepatic lobe is too small to characterize however suggests benign etiology such as a hepatic cyst. Similar appearing 3 mm lesion is noted involving the hepatic dome. No intrahepatic biliary ductal dilation. Spleen is mildly enlarged, 13.1 cm. The pancreas, gallbladder and adrenal glands are within normal limits. Kidneys, ureters and urinary bladder are unremarkable. The aorta is normal in course and caliber. No bulky adenopathy. There is no bowel obstruction or focal bowel wall thickening identified. Mild colonic diverticulosis without CT evidence of acute diverticulitis. Normal appendix. There is moderate stranding about the central lower pelvis about the vaginal cuff with surgically absent uterus. Scattered foci of pneumoperitoneum and extraperitoneal air are seen throughout the abdomen and pelvis with additional foci of deep tissue air of the abdominal wall. Focal area of increased attenuation measuring 2.6 x 1.4 cm is noted adjacent to the left anterior upper pelvis suggesting small hematoma formation, image 371 of series 6. Hyperattenuating material within the dependent pelvis is also compatible with hemorrhage. There is a 1.8 x 1.4 cm cystic lesion of the left ovary suggesting dominant follicle. Right adnexum is unremarkable. No loculated drainable fluid collections or abscess. No retained foreign body. Mild stranding with subcutaneous and deep tissue air is noted about the periumbilical tissues and left lower pelvis, likely postsurgical. The bones appear intact. IMPRESSION: 1. Postoperative changes from recent hysterectomy. Mild layering hemorrhage is seen within the dependent pelvis with a small 2.6 cm hematoma of the left upper pelvis. Scattered areas of pneumoperitoneum, extraperitoneal air and deep tissue air about the abdominal wall are also likely expected postsurgical changes. No drainable fluid collections identified. 2. No bowel obstruction or focal bowel wall thickening. 3. Mild colonic diverticulosis without diverticulitis. 4. Normal appendix. Electronically signed by: Kmaeron Pineda M.D. 11/30/2017 2:46 PM Dictated Date/Time: 11/30/2017 2:32 PM
[2017-11-30 15:31] VITALS: BP 127/89; PULSE 97; O2SAT 98
== END 2017-11-30 15:39 | disposition home or self-care (01) ==
LOC: C.EDB 12:06 → C.EDA 15:39
DX: R10.9 Unspecified abdominal pain (principal); R79.1 Abnormal coagulation profile; R07.89 Other chest pain; M25.511 Pain in right shoulder; Z98.890 Other specified postprocedural states; Z90.710 Acquired absence of both cervix and uterus; Z88.2 Allergy status to sulfonamides; Z88.0 Allergy status to penicillin; Z88.6 Allergy status to analgesic agent; Z88.8 Allergy status to other drugs, medicaments and biological substances; Z88.1 Allergy status to other antibiotic agents; Z83.3 Family history of diabetes mellitus; Z82.49 Family history of ischemic heart disease and other diseases of the circulatory system

== ENCOUNTER 2017-12-21 15:29 | Emergency (ER) | payer BC ==
[~2017-12-21] VITALS: Ht 172.7 cm; Wt 101.6 kg
[~2017-12-21 15:29] MED LIST changes: -ACET-1256 PO; -HYDR-5688 PO
[2017-12-21 15:39] VITALS: TEMP 36.7; Ht 172.7 cm; Wt 101.6 kg
[2017-12-21] MEDS ORDERED: METHYLPREDNISOLONE 125 MG VIAL IV STA (18:33)
[2017-12-21] MEDS ORDERED: SODIUM CHLORIDE 0.9% 1000ML 1,000 ML IV STA (18:33)
--- NOTE | 2017-12-21 18:33 | EMERGENCY ROOM VISIT NOTE ---
History Report prepared by Graham: Berlin Sandoval Under the Supervision of: Dr. Jorge Bonilla M.D. First contact with patient: 18:20 Chief Complaint: ALLERGIC REACTION Stated Complaint: HIVES Nursing Triage Summary: On patient started with itchiness on hands, feet, and scalp. On Thursday, hives and itchiness started on her stomach. Pt unsure of allergen. Started on Claritan. Pt reports worsening redness and hives under bra and around stomach. Denies difficulty breathing or pain. Benadryl 25mg at 1405 History of Present Illness The patient is a 42 year old female who presents to the Emergency Room with complaints of an intermittent rash beginning three days ago. The patient states her symptoms began with itchy palms and feet a week ago. She reports the rash appears like hives. The patient notes she developed hives in her bra area and upper thighs three days ago. She states she recently started taking TUMs for her reflux and using a new hair product. The patient reports she stopped taking them and using the product in hopes this would alleviate her symptoms, she notes she still developed her symptoms. She notes she was at work today and developed a rash on her hands that spread to her abdomen. The patient states she took a Benadryl afterward. She reports she also took a Zyrtec today for the first time. The patient notes she had a hysterectomy on November 23. She states she also received allergy shots for 15 years. She denies vaginal discharge, vaginal bleeding, concern for STD, and recent outdoor exposure or camping. Source of History: patient Onset: three days ago Position: hand, abdomen Quality: other (rash) Timing: intermittent Note: Denies: vaginal bleeding, vaginal discharge, recent outdoor or camping exposure Review of Systems See HPI for pertinent positives and negatives. A total of ten systems were reviewed and were otherwise negative. Past Medical & Surgical Medical Problems: (1) Abnormal uterine bleeding (AUB) (2) Leiomyoma (3) Menorrhagia Family History Cancer Diabetes mellitus Heart disease Hypertension Social History Smoking Status: Never Smoker Alcohol Use: none Drug Use: none Marital Status: Occupation Status: employed Current/Historical Medications Scheduled Cetirizine (Zyrtec), 10 MG PO DAILY Methylprednisolone (Medrol Dosepak), 1 PKT PO UD Metoprolol Tartrate (Lopressor), 12.5 MG PO BID Scheduled PRN Diphenhydramine Hcl (Benadryl Allergy), 25 MG PO UD PRN for Allergic Reaction Allergies Coded Allergies: Sulfa Antibiotics (Verified Allergy, Severe, TONGUE SWELLING, CAN'T BREATHE, 11/30/17) Penicillins (Verified Allergy, Mild, RASH, 11/30/17) Aspirin (Verified Allergy, Unknown, UNKNOWN, 11/30/17) NSAIDs (Verified Allergy, Unknown, TOLD BY HOSPICE BEREAVEMENT COORDINATOR NOT TO TAKE NSAIDS, ) WAS TOLD BY HOSPICE BEREAVEMENT COORDINATOR IN PAST NOT TO TAKE NSAIDS Erythromycin (Verified Adverse Reaction, Mild, N/V, 11/30/17) Physical Exam Vital Signs Date Time Temp Pulse Resp B/P (MAP) Pulse Ox O2 Delivery O2 Flow Rate FiO2 12/21/17 21:30 86 20 148/81 98 12/21/17 19:11 97 16 162/96 100 Room Air 12/21/17 15:43 98 Room Air 12/21/17 15:39 36.7 108 18 187/102 98 Room Air Physical Exam Physical Exam GENERAL: She is oriented to person, place, and time. She appears well- developed and well-nourished. She does not appear distressed. ____ HENT: Exam performed. Head: Normocephalic and atraumatic. Right Ear: External ear normal. No mastoid tenderness. Left Ear: External ear normal. No mastoid tenderness. Mouth/Throat: The oropharynx is clear and moist. No trismus in the jaw. No dental abscesses or uvula swelling. No oropharyngeal exudate or tonsillar abscesses. ____ EYES: Conjunctivae and EOM are normal. Pupils are equal, round, and reactive to light. Right eye exhibits no discharge. Left eye exhibits no discharge. No scleral icterus. ____ NECK: Normal range of motion. Neck supple. No JVD present. No spinous process tenderness present. No carotid bruit present. No rigidity. No tracheal deviation and normal range of motion present. No Brudzinski's sign and no Kernig 's sign noted. ____ CV: Normal rate, regular rhythm, normal heart sounds and intact distal pulses. There is no peripheral edema. Palpable radial pulses bue. ____ PULM/CHEST: Effort normal and breath sounds normal. No respiratory distress. No stridor. She has no wheezes. She has no rales. Chest Wall: She exhibits no tenderness. ____ ABD: The abdomen is soft. Bowel sounds are normal. She has no distension. No mass is present. There is no tenderness. There is no rebound, no guarding, no Albarado's sign and no tenderness at McBurney's point. Rovsig negative MUSC/SKEL: Normal range of motion. There is no peripheral edema, tenderness or deformity. LYMPH: No cervical adenopathy. ____ NEURO: She is alert and oriented to person, place, and time. She has normal strength. No cranial nerve deficit or sensory deficit. Coordination and gait normal. GCS eye subscore is 4. GCS verbal subscore is 5. GCS motor subscore is 6. Cerebellar tests wnl. ____ SKIN: Skin is warm and dry. She is not diaphoretic. Maculopapular rash over the anterior abdominal wall, anterior chest wall beneath her bilateral breast, bilateral upper and lower extremities anteriorly. No vesicle, fluctuant, drainage, or pustulants. Nikolsky negative. Small circular lesions on her bilateral palms and soles.____ PSYCH: She has a normal mood and affect. Her behavior is normal. Judgment and thought content normal. ____ Medical Decision & Procedures Laboratory Results 12/21/17 19:05 Red Blood Count 4.80, Mean Corpuscular Volume 86.3, Mean Corpuscular Hemoglobin 29.4, Mean Corpuscular Hemoglobin Concent 34.1, Mean Platelet Volume 10.9, Neutrophils (%) (Auto) 70.4, Lymphocytes (%) (Auto) 24.0, Monocytes (%) (Auto) 4.7, Eosinophils (%) (Auto) 0.6, Basophils (%) (Auto) 0.1, Neutrophils # (Auto) 7.11, Lymphocytes # (Auto) 2.42, Monocytes # (Auto) 0.47, Eosinophils # (Auto) 0.06, Basophils # (Auto) 0.01 12/21/17 19:05 Test 12/21/17 19:05 White Blood Count 10.09 K/uL (4.8-10.8) Red Blood Count 4.80 M/uL (4.2-5.4) Hemoglobin 14.1 g/dL (12.0-16.0) Hematocrit 41.4 % (37-47) Mean Corpuscular Volume 86.3 fL (80-100) Mean Corpuscular Hemoglobin 29.4 pg (25-34) Mean Corpuscular Hemoglobin Concent 34.1 g/dl (32-36) Platelet Count 287 K/uL (130-400) Mean Platelet Volume 10.9 fL (7.4-10.4) Neutrophils (%) (Auto) 70.4 % Lymphocytes (%) (Auto) 24.0 % Monocytes (%) (Auto) 4.7 % Eosinophils (%) (Auto) 0.6 % Basophils (%) (Auto) 0.1 % Neutrophils # (Auto) 7.11 K/uL (1.4-6.5) Lymphocytes # (Auto) 2.42 K/uL (1.2-3.4) Monocytes # (Auto) 0.47 K/uL (0.11-0.59) Eosinophils # (Auto) 0.06 K/uL (0-0.5) Basophils # (Auto) 0.01 K/uL (0-0.2) RDW Standard Deviation 40.7 fL (36.4-46.3) RDW Coefficient of Variation 12.8 % (11.5-14.5) Immature Granulocyte % (Auto) 0.2 % Immature Granulocyte # (Auto) 0.02 K/uL (0.00-0.02) Prothrombin Time 10.7 SECONDS (9.0-12.0) Prothromb Time International Ratio 1.0 (0.9-1.1) Activated Partial Thromboplast Time 25.2 SECONDS (21.0-31.0) Partial Thromboplastin Ratio 1.0 Anion Gap 8.0 mmol/L (3-11) Est Creatinine Clear Calc Drug Dose 111.4 ml/min Estimated GFR () 102.3 Estimated GFR (Non- 88.3 BUN/Creatinine Ratio 12.4 (10-20) Calcium Level 9.2 mg/dl (8.5-10.1) Rapid Plasma Reagin NONREACTIVE (NONREACT) Lyme Disease IgG Antibody NEG (NEG) Lyme Disease IgM Antibody NEG (NEG) Laboratory results reviewed by me Medications Administered Medications (Trade) Dose Ordered Sig/Reshma Route Start Time Stop Time Status Last Admin Dose Admin Sodium Chloride 1,000 ml @ 999 mls/hr Q1H1M STAT IV 12/21/17 18:33 12/21/17 19:33 DC 12/21/17 18:33 999 MLS/HR Methylprednisolone Sodium Succinate (Solu-Medrol IV) 125 mg NOW STAT IV 12/21/17 18:33 12/21/17 18:35 DC 12/21/17 19:08 125 MG ED Course 1822: The patient was evaluated in room C10. A complete history and physical exam was performed. 1832: Ordered Solu-Medrol IV 125mg IV, Sodium Chloride 1000 ml @ 999 mls/hr IV 2124: Vital signs stable. The patient did not experience respiratory distress while in the ED. Her O2 Sat was 100 on room air. Her itching and rash improved after Solu-Medrol. Her labs were wnl. Lyme test was negative. RPR, rickettsial testing is pending. The patient's history is not significant or concerning for syphilis or rickettsial infection. Therefore the patient was not given antibiotics. The patient's rash will be followed up by an hand zipper trimmer and scarfing machine operator. She was discharged with steroids. DISCHARGE - Plan of care discussed with patient and questions answered. The patient was given both verbal and printed discharge instructions. The patient verbalized understanding and ability to comply. The patient is to seek outpatient follow up as noted in the discharge instructions. The patient verbalized understanding and ability to comply. The patient is discharged in stable condition. The patient was instructed to return for worsening symptoms. Medical Decision Vital signs stable. The patient did not experience respiratory distress while in the ED. Her O2 Sat was 100 on room air. Her itching and rash improved after Solu-Medrol. Her labs were wnl. Lyme test was negative. RPR, rickettsial testing is pending. The patient's history is not significant or concerning for syphilis or rickettsial infection. Therefore the patient was not given antibiotics. The patient's rash will be followed up by an hand zipper trimmer and scarfing machine operator. She was discharged with steroids. DISCHARGE - Plan of care discussed with patient and questions answered. The patient was given both verbal and printed discharge instructions. The patient verbalized understanding and ability to comply. The patient is to seek outpatient follow up as noted in the discharge instructions. The patient verbalized understanding and ability to comply. The patient is discharged in stable condition. The patient was instructed to return for worsening symptoms. Medication Reconcilliation Current Medication List: was personally reviewed by me Blood Pressure Screening Patient's blood pressure: Elevated blood pressure Blood pressure disposition: Elevated BP felt to be situational Impression Primary Impression: Rash Scribe Attestation The scribe's documentation has been prepared under my direction and personally reviewed by me in its entirety. I confirm that the note above accurately reflects all work, treatment, procedures, and medical decision making performed by me. The chart was completed utilizing [employer] Speech voice recognition software. Grammatical errors, random word insertions, pronoun errors, and incomplete sentences are an occasional consequence of this system due to software limitations, ambient noise, and hardware issues. Any formal questions or concerns about the content, text, or information contained within the body of this dictation should be directly addressed to the physician for clarification. Departure Information Dispostion Home / Self-Care Prescriptions Methylprednisolone (MEDROL DOSEPAK) 4 Mg Cruz 1 PKT PO UD for 6 Days, #1 PKT Prov: Jorge Bonilla M.D. 12/21/17 Referrals Sushma Bell M.D. Forms HOME CARE DOCUMENTATION FORM, IMPORTANT VISIT INFORMATION Patient Instructions ED Allergic Reaction General Other, My [facility], [facility]
[2017-12-21] MEDS ORDERED: CETI10TA84 PO (18:59)
[2017-12-21 20:10] LABS: BASO % 0.1 %; BASO ABS # 0.01 K/uL (0-0.2); EOS % 0.6 %; EOS ABS # 0.06 K/uL (0-0.5); HEMATOCRIT 41.4 % (37-47); HEMOGLOBIN 14.1 g/dL (12.0-16.0); IG# 0.02 K/uL (0.00-0.02); LYMPH ABS # 2.42 K/uL (1.2-3.4); MEAN CELL VOLUME 86.3 fL (80-100); MEAN CORPUSCULAR HEMOGLOBIN 29.4 pg (25-34); MEAN CORPUSCULAR HGB CONC 34.1 g/dl (32-36); MEAN PLATELET VOLUME 10.9 fL (7.4-10.4); MONO % 4.7 %; MONO ABS # 0.47 K/uL (0.11-0.59); NEUT % 70.4 %; NEUT ABS # 7.11 K/uL (1.4-6.5); PLATELET COUNT 287 K/uL (130-400); RED CELL DISTRIBUTION WIDTH CV 12.8 % (11.5-14.5); RED CELL DISTRIBUTION WIDTH SD 40.7 fL (36.4-46.3); WHITE BLOOD COUNT 10.09 K/uL (4.8-10.8)
[2017-12-21 20:21] LABS: PTT PATIENT 25.2 SECONDS (21.0-31.0)
[2017-12-21 20:27] LABS: CALCIUM 9.2 mg/dl (8.5-10.1); CREATININE 0.82 mg/dl (0.60-1.20); POTASSIUM 3.6 mmol/L (3.5-5.1)
[2017-12-21] MEDS ORDERED: METH4PAK PO (21:22)
[2017-12-21 21:30] VITALS: BP 148/81; PULSE 86; O2SAT 98
[2017-12-21 23:29] LABS: RAPID PLASMA REAGIN NONREACTIVE (NONREACT)
[2017-12-23] MEDS ORDERED: DIPH25CA65 PO (18:59)
[2017-12-23] MEDS ORDERED: LPR25 PO (18:59)
[2017-12-25 22:02] LABS: R. TYPHI IgG AB Not Detected (Not Detected); R. TYPHI IgM AB Not Detected (Not Detected); RMSF IgG AB Not Detected (Not Detected); RMSF IgM AB Not Detected (Not Detected)
== END 2017-12-21 21:31 | disposition home or self-care (01) ==
LOC: C.EDB 15:31 → C.EDC 21:31
DX: R21 Rash and other nonspecific skin eruption (principal); Z90.710 Acquired absence of both cervix and uterus; Z83.3 Family history of diabetes mellitus; Z82.49 Family history of ischemic heart disease and other diseases of the circulatory system; Z88.0 Allergy status to penicillin; Z88.1 Allergy status to other antibiotic agents; Z88.6 Allergy status to analgesic agent

== ENCOUNTER 2017-12-23 20:45 | Emergency (ER) | payer BC ==
[~2017-12-23] VITALS: Ht 174 cm; Wt 99.6 kg
[~2017-12-23 20:45] MED LIST changes: +CETI10TA84 PO; +DIPH25CA65 PO; +LPR25 PO; +METH4PAK PO; -METO25TA56 PO
[2017-12-23 20:49] VITALS: TEMP 36.6; Ht 174 cm; Wt 99.6 kg
--- NOTE | 2017-12-23 22:16 | EMERGENCY ROOM VISIT NOTE ---
History Report prepared by Graham: Berlin Sandoval Under the Supervision of: Dr. Heather Giles M.D. First contact with patient: 21:58 Chief Complaint: RASH Stated Complaint: RASH,HIVES,SPOTS IN THROAT History of Present Illness The patient is a 42 year old female who presents to the Emergency Room with complaints of an intermittent rash beginning 3 days ago. The patient states she developed itchy palms, feet, hands, and the back of her head 10 days ago, but she did not develop a rash. She reports she developed a rash that spread from her abdomen to her hands. The patient notes she took Benadryl and called her PCP. She states she went to the ED because it spreading. The patient reports she was given Solu-Medrol and discharge with a steroid. She notes she was outside this evening at a baseball game. The patient states she went home and showered. She reports the rash had spread down her legs and into the left side of her mouth. The patient notes she also developed a mild sorethroat. She states she has a history of a hysterectomy a month ago has experienced chills and sweats. The patient reports she has an appointment with an electromagnet crane operator tomorrow. She denies fever, coughing, starting hormone medications, and sneezing. Source of History: patient Onset: 3 days ago Position: hand (bilateral), abdomen Quality: other (rash) Timing: intermittent Associated Symptoms: + chills, No fevers, No cough Note: Associated symptoms: sweating Denies: sneezing Review of Systems See HPI for pertinent positives & negatives. A total of 10 systems reviewed and were otherwise negative. Past Medical & Surgical Medical Problems: (1) Abnormal uterine bleeding (AUB) (2) Leiomyoma (3) Menorrhagia Family History Cancer Diabetes mellitus Heart disease Hypertension Social History Smoking Status: Never Smoker Alcohol Use: none Drug Use: none Marital Status: Occupation Status: employed Current/Historical Medications Scheduled Methylprednisolone (Medrol Dosepak), 1 PKT PO UD Metoprolol Tartrate (Lopressor), 12.5 MG PO BID Scheduled PRN Diphenhydramine Hcl (Benadryl Allergy), 25 MG PO UD PRN for Allergic Reaction Allergies Coded Allergies: Sulfa Antibiotics (Verified Allergy, Severe, TONGUE SWELLING, CAN'T BREATHE, 11/30/17) Penicillins (Verified Allergy, Mild, RASH, 11/30/17) Aspirin (Verified Allergy, Unknown, UNKNOWN, 11/30/17) NSAIDs (Verified Allergy, Unknown, TOLD BY MARKETING ASSISTANT RETAIL DIVISION NOT TO TAKE NSAIDS, ) WAS TOLD BY MARKETING ASSISTANT RETAIL DIVISION IN PAST NOT TO TAKE NSAIDS Erythromycin (Verified Adverse Reaction, Mild, N/V, 11/30/17) Physical Exam Vital Signs Date Time Temp Pulse Resp B/P (MAP) Pulse Ox O2 Delivery O2 Flow Rate FiO2 12/23/17 23:48 71 18 143/73 99 12/23/17 20:49 36.6 84 18 156/98 98 Room Air Physical Exam Vital signs reviewed. General: Well-appearing 42 year old female, in no significant distress. HEENT: No scleral icterus, PERRLA, neck supple. Atraumatic. Cardiovascular: Regular rate and rhythm, no extra sounds. Pulmonary: Clear to auscultation bilaterally, normal work of breathing. Abdomen: Soft, nontender, nondistended, positive bowel sounds. Musculoskeletal: Atraumatic, no peripheral edema. Neurologic: Patient awake alert and oriented x 3 Skin: Warm, dry, macular rash scattered to the abdomen, upper chest, and upper legs. Medical Decision & Procedures Laboratory Results Test 12/23/17 22:32 Anti-Streptolysin O Antibody Screen NEG IU/ml (<200 IU) Laboratory results per my review. ED Course 2205: Past medical records reviewed. The patient was evaluated in room B07. A complete history and physical examination was performed. 2303: Upon reevaluation, the patient appeared to have improvement of her symptoms. I discussed findings with her. She verbalized agreement of the treatment plan. The patient was discharged home. Medical Decision Differential diagnosis: Etiologies such as contact dermatitis, viral exanthem, urticaria, allergic reaction, Forbes-Juan syndrome, toxic epidermal necrolysis, erythema multiforme, cellulitis, scabies, HSV, varicella, zoster, eczema, staph scalded skin syndrome, fungal infection, as well as others were entertained. This patient was evaluated and appeared to be in no significant distress. Physical examination reveals a patchy macular papular rash with discrete lesions to the abdomen, chest and upper thighs. I do suspect the patient is suffering from a viral exanthem. Rapid strep swab was obtained and is negative , ASO titer is negative. The patient states the Benadryl and steroids have been helping and she has not significantly uncomfortable. She was concerned that her "throat may close" while she is sleeping and I believe that is the primary reason for reevaluation this evening. The patient was reassured and advised to continue the Benadryl as needed for itching. She will follow-up with her physician for reevaluation this week and return to the ER for worsening of symptoms or any medical concerns. Medication Reconcilliation Current Medication List: was personally reviewed by me Blood Pressure Screening Patient's blood pressure: Elevated blood pressure Blood pressure disposition: Elevated BP felt to be situational Impression Primary Impression: Viral exanthem, unspecified Scribe Attestation The scribe's documentation has been prepared under my direction and personally reviewed by me in its entirety. I confirm that the note above accurately reflects all work, treatment, procedures, and medical decision making performed by me. Departure Information Dispostion Home / Self-Care Referrals Mak Faustin M.D. Forms HOME CARE DOCUMENTATION FORM, IMPORTANT VISIT INFORMATION, WORK / SCHOOL INSTRUCTIONS Patient Instructions My [facility] Additional Instructions Diagnosis: Viral exanthem Please continue Benadryl and Medrol Dosepak as prescribed. Drink plenty of clear fluids. Eucerin or Lubriderm lotion generously twice daily. Follow-up with your primary care physician for reevaluation this week. Return to the ER for worsening of symptoms or any medical concerns.
[2017-12-23 23:48] VITALS: BP 143/73; PULSE 71; O2SAT 99
== END 2017-12-23 23:48 | disposition home or self-care (01) ==
LOC: C.EDB 20:46
DX: B09 Unspecified viral infection characterized by skin and mucous membrane lesions (principal); R03.0 Elevated blood-pressure reading, without diagnosis of hypertension; Z79.899 Other long term (current) drug therapy; Z88.2 Allergy status to sulfonamides; Z88.0 Allergy status to penicillin; Z79.82 Long term (current) use of aspirin; Z88.6 Allergy status to analgesic agent; Z88.1 Allergy status to other antibiotic agents; Z83.3 Family history of diabetes mellitus; Z82.49 Family history of ischemic heart disease and other diseases of the circulatory system

== ENCOUNTER → 2017-12-25 | Outpatient (CLI) | payer BC ==
[~2017-12-25] MED LIST changes: -CETI10TA84 PO
== END | disposition home or self-care (01) ==
LOC: C.LABBC 12:03
PROVIDERS: ATTEND Internal Medicine
DX: Z20.2 Contact with and (suspected) exposure to infections with a predominantly sexual mode of transmission (principal)